=== PATIENT | male | born 1945 | race Caucasian/White ===

== ENCOUNTER → 2017-12-19 10:42 | Outpatient (CLI) | payer MEDICARE | END | disposition home or self-care (01) | LOC: D.RAD 10:42 | DX: R13.10 Dysphagia, unspecified (principal) ==

== ENCOUNTER 2018-09-08 07:01 | Emergency (ER) | payer MEDICARE ==
[~2018-09-08] VITALS: Ht 182.9 cm; Wt 90.9 kg
[2018-09-08 07:02] VITALS: Ht 182.9 cm; Wt 90.9 kg
[2018-09-08] MEDS ORDERED: IBUPROFEN800 MG PO (07:20)
[2018-09-08 09:01] VITALS: BP 148/84
== END 2018-09-08 10:03 | disposition home or self-care (01) ==
LOC: D.ER 07:01
DX: S69.91XA Unspecified injury of right wrist, hand and finger(s), initial encounter (principal); W18.31XA Fall on same level due to stepping on an object, initial encounter; Y93.89 Activity, other specified; Y92.89 Other specified places as the place of occurrence of the external cause